=== PATIENT | female | born 1975 | race African-American/Black ===

== ENCOUNTER 2016-12-06 11:47 | Emergency (ER) | payer MEDICAID ==
[~2016-12-06] VITALS: Ht 160 cm; Wt 59.0 kg
[2016-12-06 12:11] VITALS: BP 119/83
[2016-12-06] MEDS ORDERED: ONDANSETRON ODT 4 MG TAB PO ONE (14:30)
[2016-12-06] MEDS ORDERED: LOPERAMIDE HCL 2 MG CAP PO ONE (14:30)
== END 2016-12-06 14:42 | disposition home or self-care (01) ==
LOC: ER 11:58
DX: R11.2 Nausea with vomiting, unspecified (principal); R19.7 Diarrhea, unspecified; Z88.1 Allergy status to other antibiotic agents
CPT/HCPCS: 99283; Q0162; 81025